=== PATIENT | male | born 1950 | race Caucasian/White ===

== ENCOUNTER 2016-09-18 18:22 | Emergency (ER) | payer OTHER | END 2016-09-18 21:30 | disposition home or self-care (01) | LOC: FER 18:22 | DX: S51.012A Laceration without foreign body of left elbow, initial encounter (principal); L08.9 Local infection of the skin and subcutaneous tissue, unspecified; M54.2 Cervicalgia; J45.909 Unspecified asthma, uncomplicated; J44.9 Chronic obstructive pulmonary disease, unspecified; F17.210 Nicotine dependence, cigarettes, uncomplicated; Z23 Encounter for immunization; Z79.51 Long term (current) use of inhaled steroids; V89.2XXA Person injured in unspecified motor-vehicle accident, traffic, initial encounter; Y92.410 Unspecified street and highway as the place of occurrence of the external cause | CPT/HCPCS: 72040; 72072; 72100; 90471; 90715 ==